=== PATIENT | female | born 1985 | race Caucasian/White ===

== ENCOUNTER 2022-10-23 09:09 | Emergency (ER) | payer BC ==
--- NOTE | 2022-10-23 09:58 | ERPHSYRPT ---
- History of Present Illness Time Seen by Provider: 10/23/22 09:54 Historian: patient Exam Limitations: no limitations Patient Subjective Stated Complaint: pt co being constipated for 11 days now, she states she is on mirlax, and laxatives, she gave her self an enema and had small results, vomited x1 today Triage Nursing Assessment: pt alert, walked in, resp easy, skin w/d/p, abd soft, no edema noted Physician History: Patient is a 37-year-old female presents to our ED as a referral from her primary provider for a CAT scan of her abdomen and pelvis. Patient has been experiencing constipation for about 11 days. Patient has been taking MiraLAX. Patient has not had a bowel movement. However last night she tried an enema which produced a small bowel movement. Patient complains of a fullness sensation in her abdomen. No portia pain. Patient abdominal discomfort is undifferentiated. Patient had outpatient laboratory work-up which was normal per patient. Patient had that she vomited once. Patient currently feels well. No nausea no pain. Patient has a slight fullness sensation otherwise feels well. Patient voices no other complaints or concerns at this time. Portions of this note were created with voice recognition technology. There may be grammatical, spelling, punctuation or sound alike errors Timing/Duration: day(s) (Approximately 2 weeks) Activities at Onset: none Quality: fullness Abdominal Pain Onset Location: generalized abdomen Pain Radiation: no radiation Severity of Pain-Max: moderate Severity of Pain-Current: mild Modifying Factors: Improves With: nothing Associated Symptoms: back (Patient had that she has some back pain. However patient declined pain medication) Previous symptoms: no prior history Allergies/Adverse Reactions: erythromycin base [Erythromycin Base] Adverse Reaction (Intermediate, Verified 10/23/22 09:40) Nausea contrast dye Allergy (Intermediate, Uncoded 10/23/22 09:40) Rash Home Medications: Metoprolol Tartrate 25 mg [Lopressor 25MG Tab] 25 mg PO DAILY 10/23/22 [History] Norethindrone-E.estradiol-Iron [Anup 24 Fe 1 mg-20 Mcg Tablet] 1 each PO DAILY 10/23/22 [History] PARoxetine HCL [Paroxetine HCl] 1 ea DAILY 10/23/22 [History] Hx Influenza Vaccination/Date Given: No Hx Pneumococcal Vaccination/Date Given: No Immunizations Up to Date: Yes Travel Risk - International Travel Have you traveled outside of the country in past 3 weeks: No - Coronavirus Screening Are you exhibiting any of the following symptoms?: No Close contact with a COVID-19 positive Pt in past 14-21 Days: No - Vaccine Status Have you recieved a Covid-19 vaccination: Yes Psychologist Developmental: Unknown - Vaccination Dates Date of 2cond Vaccination (if applicable): ? Dates if Unknown: ? - Review of Systems Constitutional: No Symptoms, No Fever, No Chills Eyes: No Symptoms Ears, Nose, & Throat: No Symptoms Respiratory: No Symptoms, No Cough, No Dyspnea Cardiac: No Symptoms, No Chest Pain, No Edema, No Syncope Abdominal/Gastrointestinal: No Symptoms, No Abdominal Pain, No Nausea, No Vomiting, No Diarrhea Genitourinary Symptoms: No Symptoms, No Dysuria Musculoskeletal: No Symptoms, No Back Pain, No Neck Pain Skin: No Symptoms, No Rash Neurological: No Symptoms, No Dizziness, No Focal Weakness, No Sensory Changes Psychological: No Symptoms Endocrine: No Symptoms Hematologic/Lymphatic: No Symptoms Immunological/Allergic: No Symptoms All Other Systems: Reviewed and Negative - Past Medical History Pertinent Past Medical History: Yes Cardiac History: Hypertension - Past Surgical History Past Surgical History: Yes Female Surgical History: Section - Social History Smoking Status: Never smoker Exposure to second hand smoke: No Drug Use: none Patient Lives Alone: No - Female History Hx Last Menstrual Period: week ago Hx Now: No - Nursing Vital Signs Nursing Vital Signs: Initial Vital Signs Temperature 98.3 F 10/23/22 09:26 Pulse Rate 65 10/23/22 09:26 Respiratory Rate 18 10/23/22 09:26 Blood Pressure 141/82 10/23/22 09:26 O2 Sat by Pulse Oximetry 98 10/23/22 09:26 Pain Scale Pain Intensity 2 - Physical Exam General Appearance: no apparent distress, alert Eye Exam: PERRL/EOMI, eyes nml inspection Ears, Nose, Throat Exam: normal ENT inspection, pharynx normal, moist mucous membranes Neck Exam: normal inspection, non-tender, supple, full range of motion Respiratory Exam: normal breath sounds, lungs clear, airway intact, No re spiratory distress Cardiovascular Exam: regular rate/rhythm, normal heart sounds, normal peripheral pulses Gastrointestinal/Abdomen Exam: soft, other (Diminished bowel sounds), No tenderness, No mass Back Exam: normal inspection, normal range of motion, No CVA tenderness, No vertebral tenderness Extremity Exam: normal inspection, normal range of motion, pelvis stable Neurologic Exam: alert, oriented x 3, cooperative, normal mood/affect, nml cerebellar function, sensation nml, No motor deficits Skin Exam: normal color, warm, dry Lymphatic Exam: No adenopathy SpO2 Interpretation: normal SpO2: 98 O2 Delivery: Room Air - Course Nursing assessment & vital signs reviewed: Yes - CT Exams Abdomen/Pelvis CT Interpretation: Tele-radiologist Report (Diverticulosis, fat-containing umbilical hernia) Ordered Tests: Active Orders 24 hr Category Date Time Status ABDOMEN AND PELVIS W/0 CONTRAS [CT] Stat Exams 10/23/22 09:40 Completed UA W/RFX UR CULTURE Stat Lab 10/23/22 10:18 Completed Lab/Rad Data: Laboratory Results 10/23/22 Range/Units 10:18 Urine Color Yellow (Yellow) Urine Appearance Clear (Clear) Urine pH 7.5 (4.6-8.0) Ur Specific [place] <=1.005 (1.005-1.030) Urine Protein Negative (Negative) Urine Glucose (UA) Negative (Negative) mg/dL Urine Ketones Negative (Negative) Urine Blood Negative (Negative) Urine Nitrite Negative (Negative) Urine Bilirubin Negative (Negative) Urine Urobilinogen 0.2 (0.2) mg/dL Ur Leukocyte Esterase Trace A (Negative) U Hyaline Cast (Auto) NONE SEEN (0-2) /LPF Urine Microscopic RBC 0-2 (0-5) /HPF Urine Microscopic WBC 0-2 (0-5) /HPF Ur Epithelial Cells None Seen (None Seen) /HPF Urine Bacteria None Seen (None Seen) /HPF Urine Culture Reflexed NO (NO) - Progress Progress: improved Progress Note: 37-year-old female presents to our ED for evaluation of possible constipation. Physical exam shows diminished bowel sounds. Otherwise negative. UA negative. CT abdomen pelvis shows diverticulosis and a fat-containing umbilical hernia otherwise negative. Complexity of problem addressed is low acute uncomplicated. No critical care time Complexity of data reviewed and analyzed is moderate. Test ordered. Test independent reviewed and and analyzed by Dr. Underwood. Risk of complication and or risk morbidity/mortality of patient management is low. Patient declined medications. We will discharge home. Patient agrees to follow-up with her primary care doctor within 48 hours for reevaluation. Portions of this note were created with voice recognition technology. There may be grammatical, spelling, punctuation or sound alike errors 10/23/22 12:02 10/24/22 00:41 Counseled pt/family regarding: lab results, diagnosis, need for follow-up, rad results - Departure Departure Disposition: Home Clinical Impression: Abdominal fullness Condition: Stable Critical Care Time: No Referrals: DIONISIO GLYNN [Primary Care Provider] - Follow up/PCP as directed Instructions: Abdominal Pain, Adult ED Additional Instructions: Discharge/Care Plan JONATHAN CORBETT was seen on 10/23/22 in the Emergency Room. The patient was counseled regarding Diagnosis,Lab results, Imaging studies, need for follow up and when to return to the Emergency Room. Prescriptions given: Discharge Note I have spoken with the patient and/or caregivers. I have explained the patient's condition, diagnosis and treatment plan based on the information available to me at this time. I have answered the patient's and/or caregiver's questions and addressed any concerns. The patient and/or caregivers have as good understanding of the patient's diagnosis, condition and treatment plan as can be expected at this point. The vital signs have been stable. The patient's condition is stable and appropriate for discharge from the emergency department. The patient will pursue further outpatient evaluation with the primary care physician or other designated or consulting physician as outlined in the discharge instructions. The patient and/or caregivers are agreeable to this plan of care and follow-up instructions have been explained in detail. The patient and/or caregivers have received these instruction. The patient/and or caregivers are aware that any significant change in condition or worsening of symptoms should prompt an immediate return to this or the closest emergency department or call 911.
[2022-10-23 10:34] LABS: Appearance Clear (Clear); Bacteria None Seen /HPF (None Seen); Bilirubin Negative (Negative); Blood Negative (Negative); Epithelial Cells None Seen /HPF (None Seen); Glucose, Urine Negative (Negative); Hyaline Casts NONE SEEN /LPF (0-2); Ketones Negative (Negative); Leukocyte Esterase Trace (Negative); Nitrite Negative (Negative); Ph 7.5 (4.6-8.0); Protein,Urine Dip Negative (Negative); RBC 0-2 /HPF (0-5); Specific Gravity <=1.005 (1.005-1.030); Urobilinogen 0.2 mg/dL (0.2); WBC 0-2 /HPF (0-5)
[2022-10-23 10:36] LABS: ADD URINE CULTURE? NO (NO)
--- NOTE | 2022-10-23 11:52 | XRAY ---
CLINICAL HISTORY:constipation COMPARISON:None. TECHNIQUES:CT of the abdomen and pelvis was performed in axial plane with sagittal and coronal reconstruction images without intravenous contrast. FINDINGS: The liver is normal in size, morphology and position. The liver appears unremarkable with no intrahepatic or extrahepatic bile duct dilation. Gallbladder appears normal with no obvious stones wall thickening or pericholecystic inflammatory changes or fluid. Unremarkable appearing pancreas. No pancreatic mass or ductal dilatation is seen. Unremarkable appearing spleen. The adrenal glands are normal. No abdominal wall pathology is seen. The kidneys appear normal in size. No cysts, calculi, masses or hydronephrosis. The ureters are normal with no stones. Bladder is unremarkable with no stones. The stomach is partially collapsed and appears grossly unremarkable. Unremarkable appearing duodenum. Small bowel and colon are non-distended. No free air and no ascites. No free intraperitoneal air is seen. Few small air-filled outpouchings are noted in the sigmoid and descending colon representing diverticulosis, no significant adjacent fat stranding identified to suggest acute diverticulitis. Appendix is visualized and appears grossly unremarkable, no evidence of periappendiceal fat stranding. Small fat-containing umbilical hernia noted with defect measures 1.0x1.1 cm. Visualized bones appear unremarkable. The visualized lung bases appear unremarkable. IMPRESSION: 1. Mild large bowel diverticulosis without definite imaging evidence of acute diverticulitis. 2. Small fat-containing umbilical hernia. 3. No significant abnormality is identified. Electronically Signed by: Rupal Carter MD. (10/23/2022 10:43:53 CORRECTIONAL SERGEANT)
[2022-10-23 12:04] VITALS: BP 137/85; PULSE 60
[2022-10-23 12:05] VITALS: O2SAT 98
== END 2022-10-23 12:18 | disposition home or self-care (01) ==
LOC: ED 09:09
DX: R14.0 Abdominal distension (gaseous) (principal); K59.00 Constipation, unspecified; I10 Essential (primary) hypertension; Z79.899 Other long term (current) drug therapy
CPT/HCPCS: 74176; 81001; 99283